=== PATIENT | female | born 1980 | race African-American/Black ===

== ENCOUNTER 2018-04-22 16:13 | Inpatient (IN) | payer BC ==
[~2018-04-22] VITALS: Ht 163.8 cm; Wt 140.6 kg
[2018-04-22] MEDS ORDERED: ACETAMINOPHEN 325MG TABLET PO ONE (19:30)
[2018-04-22 19:47] LABS: BASOPHILS % 0.8 % (0.0-2.0); HEMATOCRIT. 41.4 % (36.0-48.0); HEMOGLOBIN. 13.7 g/dL (12.0-16.0); LYMPHOCYTES % 18.3 % (20.0-50.0); MEAN CORPUSCULAR HEMOGLOBIN 29.8 pg (28.0-32.0); MEAN CORPUSCULAR VOLUME 90.4 fL (81.0-99.0); MONOCYTES % 6.6 % (2.0-8.0); NEUTROPHILS % 71.3 % (40.0-76.0); PLATELET 296 x1000/uL (130-400); RED BLOOD CELL COUNT 4.58 mill/uL (4.2-5.4); RED CELL DISTRIBUTION WIDTH 13.3 % (11.6-14.6)
[2018-04-22 19:52] LABS: CHLORIDE 105 mEq/L (98-107)
[2018-04-22 19:58] LABS: C REACTIVE PROTEIN QUANT 6.2 mg/L (0.0-3.0)
[2018-04-22 20:17] LABS: B-HCG QUANTITATIVE 5927 mIU/mL (<3)
[2018-04-22] MEDS ORDERED: SODIUM CHLORIDE 0.9% 1,000 ML IV ONE (22:15)
[2018-04-23] MEDS ORDERED: NORMAL SALINE 0.9% 10 ML SYR ONE (01:45)
[2018-04-23] MEDS ORDERED: VASOPRESSIN 20 UNIT/ML 1ML ONE (01:45)
[2018-04-23] MEDS ORDERED: PROPOFOL 200MG/20ML VIAL IV ONE (01:55)
[2018-04-23] MEDS ORDERED: ROCURONIUM BROMIDE 10MG/ML VIAL 5ML IV ONE ×2 (01:56→01:57)
[2018-04-23] MEDS ORDERED: MIDAZOLAM HCL 2 MG/2 ML VIAL ONE (01:59)
[2018-04-23] MEDS ORDERED: FENTANYL CITRATE/PF 50MCG/ML 2ML VIAL ONE (01:59)
[2018-04-23] MEDS ORDERED: PHENYLEPHRINE HCL 10 MG/ML 1ML (IV VIAL) IV ONE (02:02)
[2018-04-23] MEDS ORDERED: SUCCINYLCHOLINE CHLORIDE 200MG/10ML IV ONE (02:29)
[2018-04-23] MEDS ORDERED: SODIUM CHLORIDE 0.9% 10ML VIAL ONE (02:37)
[2018-04-23] MEDS ORDERED: CEFAZOLIN SODIUM 1000MG/VIAL ONE (02:37)
[2018-04-23] MEDS ORDERED: ONDANSETRON HCL 4MG/2ML INJ ONE (02:40)
[2018-04-23] MEDS ORDERED: DEXAMETHASONE 4MG/ML 1ML VIAL ONE (02:40)
[2018-04-23] MEDS ORDERED: METOCLOPRAMIDE HCL 10MG/2ML VIAL ONE (02:40)
[2018-04-23] MEDS ORDERED: GLYCOPYRROLATE 0.2 MG/ML 2ML VIAL ONE (03:29)
[2018-04-23] MEDS ORDERED: DIPHENHYDRAMINE 25MG CAPSULE PO PRN (03:30)
[2018-04-23] MEDS ORDERED: ONDANSETRON HCL 4MG/2ML INJ IV PRN (03:30)
[2018-04-23] MEDS ORDERED: HYDROCODONE/ACETAMINOPHEN 5/325MG TABLET PO PRN (03:30)
[2018-04-23] MEDS ORDERED: BISACODYL 10MG SUPP PR PRN (03:30)
[2018-04-23] MEDS ORDERED: IBUPROFEN 800MG TABLET PO PRN (03:30)
[2018-04-23] MEDS ORDERED: IBUPROFEN 400MG TABLET PO PRN (03:30)
[2018-04-23] MEDS ORDERED: KETOROLAC 30MG/ML VIAL ONE (03:44)
[2018-04-23] MEDS: HYDROMORPHONE HCL/PF 2MG/ML CPJ IV PRN ×2 (03:58→04:23)
[2018-04-23 04:30] VITALS: BP 102/59
[2018-04-23 05:30] VITALS: BP 102/55
[2018-04-23] MEDS ORDERED: HYDROMORPHONE HCL/PF 2MG/ML CPJ IM PRN (05:35)
[2018-04-23] MEDS: DEXT 5%/LACTATED RINGERS 1,000 ML IV SCH ×2 (07:08→13:43)
[2018-04-23 08:00] VITALS: BP 104/68
[2018-04-23] MEDS: SIMETHICONE 80MG TABLET CHEW PO SCH ×4 (08:58→20:17)
[2018-04-23] MEDS ORDERED: POTASSIUM CHLORIDE INJ 40 MEQ in DEXT 5% WATER 500 ML IV NR (10:00)
[2018-04-23 12:00] VITALS: BP 113/68
[2018-04-23 16:00] VITALS: BP_SYST 114; BP_DIAS 67; BP_DIAS 88
[2018-04-23 20:00] VITALS: BP 99/51
[2018-04-23] MEDS ORDERED: POTASSIUM CHLORIDE 20MEQ TABLET SR PO NR (20:45)
[2018-04-23] MEDS ORDERED: DOCUSATE SODIUM 100MG CAPSULE PO SCH (21:00)
[2018-04-24] VITALS: BP 98/52
[2018-04-24 04:00] VITALS: BP 103/78
[2018-04-24 06:04] LABS: BASOPHILS % 0.6 % (0.0-2.0); EOSINOPHILS % 1.5 % (0.0-5.0); HEMATOCRIT. 33.9 % (36.0-48.0); HEMOGLOBIN. 11.6 g/dL (12.0-16.0); LYMPHOCYTES % 20.4 % (20.0-50.0); MEAN CORPUSCULAR HEMOGLOBIN 30.8 pg (28.0-32.0); MEAN CORPUSCULAR VOLUME 90.4 fL (81.0-99.0); MEAN PLATELET VOLUME 10.3 fl (7.4-10.4); MONOCYTES % 7.5 % (2.0-8.0); PLATELET 243 x1000/uL (130-400); RED BLOOD CELL COUNT 3.75 mill/uL (4.2-5.4); RED CELL DISTRIBUTION WIDTH 13.5 % (11.6-14.6)
[2018-04-24 08:00] VITALS: BP 99/52
[2018-04-24] MEDS: SIMETHICONE 80MG TABLET CHEW PO SCH ×3 (10:07→18:57)
[2018-04-24 12:00] VITALS: BP 111/70
[2018-04-24 16:00] VITALS: BP 112/69
[2018-04-24 19:46] VITALS: BP 115/71
== END 2018-04-24 20:50 | disposition home or self-care (01) | DRG 818 ==
LOC: ER 16:13 → 6EST 04-23 01:20 → ENRESERV 04-23 01:37
PROVIDERS: ADMIT Specialist; ATTEND Specialist
PROC: 10T20ZZ Resection of Products of Conception, Ectopic, Open Approach (ICD-10-PCS; principal; 2018-04-23)
PROC: 0UT50ZZ Resection of Right Fallopian Tube, Open Approach (ICD-10-PCS; 2018-04-23)
DX: O00.101 Right tubal pregnancy without intrauterine pregnancy (principal); R65.10 Systemic inflammatory response syndrome (SIRS) of non-infectious origin without acute organ dysfunction; O75.89 Other specified complications of labor and delivery; E87.6 Hypokalemia; D25.9 Leiomyoma of uterus, unspecified; O99.211 Obesity complicating pregnancy, first trimester; E66.01 Morbid (severe) obesity due to excess calories; O99.281 Endocrine, nutritional and metabolic diseases complicating pregnancy, first trimester; O34.11 Maternal care for benign tumor of corpus uteri, first trimester; O09.521 Supervision of elderly multigravida, first trimester; Z98.891 History of uterine scar from previous surgery; Z3A.01 Less than 8 weeks gestation of pregnancy
CPT/HCPCS: 36415; 76801; 82962; 84132; 84702; 86140; 86850; 86900; 88305; 93005; 96360; 99285; J0330; J0690; J1100; J1170; J1885; J2250; J2370; J2405; J2704; J2765; J3010; J3480; J3490; J7030; J7060